=== PATIENT | male | born 1950 | race Two or more races ===

== ENCOUNTER 2025-02-22 20:08 | Inpatient (IN) | payer OTHER, BC ==
[~2025-02-22] VITALS: Ht 177.8 cm; Wt 122.5 kg
[~2025-02-22 20:08] MED LIST: ALLERGY RELIE15.8 ML; ATACAND32 MG PO; CHILDREN'S ASPI81 MG PO; HYDRALAZINE HC100 MG PO; METOPROLOL SUCC25 MG PO; PANTOPRAZOLE SO20 MG PO; TERAZOSIN HCL1 M1 PO
--- NOTE | 2025-02-22 20:35 | NUR ---
PTE REFIERE MAREOS DESDE LAS 5:00PM SE REALIZA EKG Y SE PRESENTA A MEDICO DE TURNO
[2025-02-22] MEDS ORDERED: METHYLPREDNISOLONE SOD SUCC 125 MG VIAL IV ONE (21:30)
[2025-02-22] MEDS ORDERED: FAMOTIDINE/PF 20 MG/2 ML VIAL IV ONE (21:30)
[2025-02-22] MEDS ORDERED: IPRATROPIUM BROMIDE 0.5 MG/2.5 ML AMPUL.NEB IH SCH (21:30)
[2025-02-22] MEDS ORDERED: IPRATROPIUM BROMIDE 0.5 MG/2.5 ML AMPUL.NEB IH ONE (21:42)
[2025-02-22] MEDS ORDERED: METHYLPREDNISOLONE SOD SUCC 125 MG VIAL ONE (22:00)
[2025-02-22] MEDS ORDERED: FAMOTIDINE/PF 20 MG/2 ML VIAL ONE (22:00)
[2025-02-22 22:01] LABS: BASO % 0.5 % (0.1-1.2); EOS # 0.06 (0.04-0.54); EOS % 0.7 % (0.7-7.0); LYMPH # 1.01 (1.18-3.74); LYMPH % 12.5 % (19.3-53.1); MEAN PLATELET VOLUME 9.90 fl (9.4-12.4); MONO # 0.41 (0.24-0.82); MONO % 5.1 % (4.7-12.5); NEUT # 6.52 (1.56-6.13); NEUT % 81.0 % (34.0-71.1); RED CELL DISTRIBUTION WIDTH 12.9 % (11.6-14.4)
--- NOTE | 2025-02-22 22:14 | NUR ---
SE ORIENTA A PACIENTE SOBRE TX MEDICO. SE COLECTAN MUESTRAS DE LABORATORIO Y SE CANALIZA A PACIENTE BAJO MEDIDAS ASEPTICAS. SE ADMINISTRAN MEDICAMENTOS S[place]NA ORDEN MEDICA. MR [place] REALIZA ABGS Y ADMINISTRA TERAPIAS ORDENADAS. SE NOTIFICA CT.
[2025-02-22 22:24] LABS: BUN CREA RATIO 20.0 (7.0-25.0); CKMB 2.7 NG/ML (0.5-3.6); CREATININE SERUM 1.74 mg/dL (0.70-1.30); GFR 38.44; GLUCOSE FASTING 156.0 mg/dL (65-100); OSMOLALITY SERUM 292.0 MOSM/KG (275-295)
[2025-02-22 23:43] LABS: COVID-19 AG NEGATIVE (NEGATIVE)
[2025-02-23] MEDS ORDERED: IPRATROPIUM BROMIDE 0.5 MG/2.5 ML AMPUL.NEB IH SCH (01:00)
[2025-02-23] MEDS ORDERED: CEFTRIAXONE SODIUM 1,000 MG VIAL IV STA (03:40)
[2025-02-23] MEDS ORDERED: ALBUTEROL SULFATE 3 ML/2.5 MG AMPUL.NEB IH SCH (03:45)
[2025-02-23] MEDS ORDERED: 0.9 % SODIUM CHLORIDE 1,000 ML IV ONE (03:45)
[2025-02-23] MEDS ORDERED: IPRATROPIUM BROMIDE 0.5 MG/2.5 ML AMPUL.NEB IH ONE ×2 (04:08→08:21)
[2025-02-23] MEDS ORDERED: CEFTRIAXONE SODIUM 1,000 MG VIAL ONE ×2 (04:35→04:41)
--- NOTE | 2025-02-23 05:12 | NUR ---
SE ORIENTA PACIENTE SOBRE TX MEDICO Y ACE REFIERE ENTENDER Y ACEPTAR EL MISMO. SE PROCEDE A ADMINISTRAR MEDICAMENTO SAVANA ORDEN MEDICA BAJO MEDIDAS ASEPTICAS.
[2025-02-23] MEDS ORDERED: 0.9 % SODIUM CHLORIDE 1,000 ML IV SCH (13:15)
[2025-02-23] MEDS ORDERED: FAMOTIDINE/PF 20 MG in 0.9 % SODIUM CHLORIDE 8 ML IV PUSH SCH (13:16)
[2025-02-23] MEDS ORDERED: LISINOPRIL 10 MG TABLET PO SCH (13:20)
[2025-02-23] MEDS ORDERED: ACETAMINOPHEN 325 MG TABLET PO PRN (13:30)
[2025-02-23] MEDS ORDERED: hydrALAZINE HCL 20 MG VIAL IV PRN (13:30)
[2025-02-23] MEDS ORDERED: ENOXAPARIN SODIUM 30 MG/0.3 ML SYRINGE SUBCUTANEO SCH (13:52)
[2025-02-23] MEDS ORDERED: ATORVASTATIN CALCIUM 40 MG TABLET PO SCH (13:52)
[2025-02-23 16:31] LABS: INR 1.0
[2025-02-23 16:46] VITALS: BP 140/59
[2025-02-23 17:06] VITALS: BP 140/59; O2SAT 98
[2025-02-23 19:44] LABS: URINE APPEARANCE Clear; URINE BILIRRUBIN Negative (NEGATIVE); URINE BLOOD Negative; URINE COLOR Yellow; URINE GLUCOSE Negative (NEGATIVE); URINE KETONE Negative (NEGATIVE); URINE LEUKOCYTE Moderate; URINE NITRATE Negative; URINE PROTEIN Negative (NEGATIVE); URINE UROBILINOGEN 0.2 E.U./dl
[2025-02-23 19:47] LABS: URINE BACTERIA 145.1 uL (0.0-1933); URINE EPITHELIAL CELLS 8.4 uL (0.0-38.8); URINE RBC 3.0 uL (0.0-20.8); URINE WBC 152.3 uL (0.0-23.2)
[2025-02-23 19:50] LABS: URINE CAST 0.29 uL (0.0-1.40)
[2025-02-23 22:07] VITALS: BP 160/75; O2SAT 98
[2025-02-24 02:26] VITALS: BP 128/67; BP 130/55; O2SAT 95; O2SAT 97
[2025-02-24 06:46] LABS: ALT/SGPT 30.0 U/L (12-78); AST/SGOT 21.0 U/L (15-37); BILIRUBIN TOTAL 0.57 mg/dL (0.3-1.2); BUN CREA RATIO 23.0 (7.0-25.0); CREATININE SERUM 1.59 mg/dL (0.70-1.30); GFR 42.66; GLOBULINA 2.6 G/DL (2.4-3.5); GLUCOSE FASTING 117.0 mg/dL (65-100); OSMOLALITY SERUM 291.0 MOSM/KG (275-295)
[2025-02-24 10:20] VITALS: BP 153/73; O2SAT 97
[2025-02-24 13:03] VITALS: O2SAT 97
[2025-02-24] MEDS ORDERED: LIPITOR40 M1 PO (14:34)
[2025-02-24] MEDS ORDERED: TERAZOSIN HCL1 M1 PO (14:35)
[2025-02-24] MEDS ORDERED: HYDRALAZINE HC100 MG PO (14:35)
[2025-02-24] MEDS ORDERED: METOPROLOL SUCC25 MG PO (14:35)
[2025-02-24] MEDS ORDERED: ATACAND32 MG PO (14:35)
== END 2025-02-24 14:57 | disposition home or self-care (01) | DRG 155 ==
LOC: ER 20:08 → MEDJ 02-23 15:26
PROVIDERS: General Practice; ADMIT Internal Medicine; ATTEND Internal Medicine
PROC: 4A033R1 Measurement of Arterial Saturation, Peripheral, Percutaneous Approach (ICD-10-PCS; principal; 2025-02-22)
PROC: BW28ZZZ Computerized Tomography (CT Scan) of Head (ICD-10-PCS; 2025-02-23)
PROC: B22 Imaging, Heart, Computerized Tomography (CT Scan) (ICD-10-PCS; 2025-02-23)
PROC: 3E0F7GC Introduction of Other Therapeutic Substance into Respiratory Tract, Via Natural or Artificial Opening (ICD-10-PCS; 2025-02-23)
PROC: 4A12X4Z Monitoring of Cardiac Electrical Activity, External Approach (ICD-10-PCS; 2025-02-24)
DX: J34.2 Deviated nasal septum (principal); N17.9 Acute kidney failure, unspecified; J34.3 Hypertrophy of nasal turbinates; J32.4 Chronic pansinusitis; R04.0 Epistaxis; R06.02 Shortness of breath; I10 Essential (primary) hypertension; E86.0 Dehydration